=== PATIENT | male | born 1995 | race Caucasian/White ===

== ENCOUNTER 2018-12-12 12:59 | Inpatient (IN) | payer BC ==
[2018-12-12 19:12] VITALS: BMI 25.7
--- NOTE | 2018-12-12 22:54 | HP ---
COWS - Scale Resting Pulse: 0= OR 80 or Below Sweatin=Flushed/Facial Moisture Restless Observation: 5= Unable to Sit Still Pupil Size: 0= Normal to Room Light Bone or Joint Aches: 4=Acute Joint/Muscle Pain Runny Nose/ Eye Tearin= Nasal Congestion GI Upset > 30mins: 3= Vomiting/Diarrhea Tremor Observation: 4= Gross Tremor/Twitching Yawning Observation: 1= 1-2x During Session Anxiety or Irritability: 2=Irritable/Anxious Goose Flesh Skin: 0=Smooth Skin COWS Score: 22 CIWA Score Nausea/Vomitin-Mild Nausea/No Vomiting Muscle Tremors: 4-Moderate,w/Arms Extend Anxiety: 4-Mod. Anxious/Guarded Agitation: 4-Moderately Restless Paroxysmal Sweats: 3 Orientation: 0-Oriented Tacttile Disturbances: 2-Mild Itch/Numbness/Burn Auditory Disturbances: 0-None Visual Disturbances: 0-None Headache: 3-Moderate CIWA-Ar Total Score: 21 - Admission Criteria [facility] Guidelines: Admission for Medically Managed Detox: Requires at least one of the followin. CIWA greater than 12 2. Seizures within the past 24 hours 3. Delirium tremens within the past 24 hours 4. Hallucinations within the past 24 hours 5. Acute intervention needed for co occurring medical disorder 6. Acute intervention needed for co occurring psychiatric disorder 7. Severe withdrawal that cannot be handled at a lower level of care (continued vomiting, continued diarrhea, abnormal vital signs) requiring intravenous medication and/or fluids 8. Admission [facility] Chief Complaint: c/o withdrawal sx's Allergies/Adverse Reactions: Allergies Allergy/AdvReac Type Severity Reaction Status Date / Time buprenorphine [From Suboxone] Allergy Verified 12/12/18 18:52 naloxone [From Suboxone] Allergy Verified 12/12/18 18:52 History of Present Illness: 23 Y.O. MALE WITH OPIOID AND BENZO DEPENDENCE HERE FOR DETOX. CLIENT STATES HE IS COURT MANDATED. THIS IS HIS FIRST ADMISSION HERE. PRESENTS WITH C/O WITHDRAWAL SX'S. HE REPORTS DAILY USE OF HEROIN-IVDU, AND SNIFFING. LAST USE THIS MORNING. HE STATES HE IS RX XANAX 2 MG TID. LAST USE A FEW HOURS AGO TO HELP WITH WITHDRAWAL SX'S. HE TOOK "A PIECE OF A STICK" REPORTED HX/O DRUG WITHDRAWAL SZ, BLACKOUTS. MOST RECENT CLEAN TIME 2 MONTHS RELAPSING 6 MONTHS AGO. LIVES WITH , EMPLOYED, OPEN LEGAL CASE. REPORTS HX/O BRAIN INJURY, SCHIZOPHRENIA, ADD, ADHD, BIPOLAR, PTSD Exam Limitations: No Limitations - Ebola screening Have you traveled outside of the country in the last 21 days: No Have you had contact with anyone from an Ebola affected area: No Have you been sick,other than usual withdrawal symptoms: No Do you have a fever: No - Review of Systems Constitutional: Chills, Loss of Appetite, Malaise, Night Sweats, Changes in sleep EENT: reports: No Symptoms Reported Respiratory: reports: No Symptoms reported Cardiac: reports: No Symptoms Reported GI: reports: Poor Appetite, Vomiting, Abdominal cramping : reports: Other (HESITANCY) Musculoskeletal: reports: Back Pain, Joint Pain, Muscle Pain, Joint Stiffness Integumentary: reports: No Symptoms Reported Neuro: reports: Headache (MIGRAINES), Seizure, Tremors, Unsteady Gait Endocrine: reports: No Symptoms Reported Hematology: reports: No Symptoms Reported Psychiatric: reports: Orientated x3, Anxious, Depressed Other Systems: Reviewed and Negative Patient History - Patient Medical History Hx Anemia: No Hx Asthma: No Hx Chronic Obstructive Pulmonary Disease (COPD): No Hx Cancer: No Hx Cardiac Disorders: No Hx Congestive Heart Failure: No Hx Hypertension: No Hx Hypercholesterolemia: No Hx Pacemaker: No HX Cerebrovascular Accident: No Hx Seizures: Yes Hx Dementia: No Hx Diabetes: No Hx Gastrointestinal Disorders: No Hx Liver Disease: No Hx Genitourinary Disorders: No Hx Sexually Transmitted Disorders: No Hx Renal Disease (ESRD): No Hx Thyroid Disease: No Hx Human Immunodeficiency Virus (HIV): No Hx Hepatitis C: No Hx Depression: Yes Hx Suicide Attempt: Yes (PRESENTLY DENIES) Hx Bipolar Disorder: Yes Hx Schizophrenia: Yes - Patient Surgical History Past Surgical History: No - PPD History Previous Implant?: Yes Documented Results: Negative w/o proof Implanted On Prior [facility] Admission?: No PPD to be Administered?: Yes - Smoking Cessation Smoking history: Current every day smoker Have you smoked in the past 12 months: Yes Aproximately how many cigarettes per day: 20 Cigars Per Day: 0 Hx Chewing Tobacco Use: No Initiated information on smoking cessation: Yes 'Breaking Loose' booklet given: 12/12/18 - Substance & Tx. History Hx Alcohol Use: No Hx Substance Use: Yes Substance Use Type: Cocaine, Heroin, Marijuana, Opiates, Tranquilizers (XANAX) - Substances abused Heroin Substance route: Injection Frequency: Daily Amount used: 20BAGS Age of first use: 19 Date of last use: 12/12/18 Other Other (specify): FENTANYL Substance route: Oral Frequency: Daily Amount used: 0.5GRAMS Age of first use: 22 Date of last use: 12/12/18 Family Disease History - Family Disease History Family Disease History: Diabetes: Mother, Heart Disease: Father Admission Physical Exam [facility] - Vital Signs Vital Signs: Vital Signs - 24 hr 12/12/18 19:09 Temperature 96.6 F L Pulse Rate 60 Respiratory 18 Rate Blood Pressure 109/67 - Physical General Appearance: Yes: Moderate Distress, Tremorous, Irritable, Anxious HEENTM: Yes: EOMI, Normocephalic, Normal Voice, TERESA, Pharynx Normal, Other ( POOR DENTTION) Respiratory: Yes: Chest Non-Tender, Lungs Clear, Normal Breath Sounds, No Respiratory Distress, No Accessory Muscle Use Neck: Yes: No masses,lesions,Nodules, Supple, Trachea in good position Breast: Yes: Breast Exam Deferred Cardiology: Yes: Regular Rhythm, Regular Rate, S1, S2 Abdominal: Yes: Normal Bowel Sounds, Non Tender, Soft Genitourinary: Yes: Within Normal Limits Back: Yes: Normal Inspection Musculoskeletal: Yes: full range of Motion, Gait Steady, Joint Stiffness (2/2 ACHES) Extremities: Yes: Normal Capillary Refill, Normal Range of Motion, Non-Tender, Tremors Neurological: Yes: Fully Oriented, Alert, Motor Strength 5/5, Depressed Affect Integumentary: Yes: Cold Lymphatic: Yes: Within Normal Limits - Diagnostic (1) Opioid dependence with withdrawal Current Visit: Yes Status: Acute (2) Sedative, hypnotic or anxiolytic dependence, uncomplicated Current Visit: Yes Status: Acute (3) Nicotine dependence Current Visit: Yes Status: Acute (4) IVDU (intravenous drug user) Current Visit: Yes Status: Acute (5) Cannabis dependence, uncomplicated Current Visit: Yes Status: Acute (6) Cannabis abuse, uncomplicated Current Visit: Yes Status: Acute (7) Cocaine abuse, uncomplicated Current Visit: Yes Status: Acute Cleared for Admission [facility] - Detox or Rehab [facility] Level of Care: Medically Managed Detox Regimen/Protocol: Methadone/Valium Claeared for Rehab Admission: No Breathalyzer - Breathalyzer Breathalyzer: 0 Urine Drug Screen - Test Device Lot number: [id number] Expiration date: 08/25/20 - Control Is test valid?: Yes - Results Drug screen NEGATIVE: No Urine drug screen results: THC-Marijuana, JAIRO-Cocaine, FEN-Fentanyl, MOP-Opiates , OXY-Oxycodone, MTD-Methadone, BZO-Benzodiazepines Inpatient Rehab Admission - Rehab Decision to Admit Inpatient rehab admission?: No
[2018-12-12] MEDS ORDERED: IBUPROFEN 400 MG TABLET (FP) PO PRN (23:00)
[2018-12-12] MEDS ORDERED: hydrOXYzine PAMOATE 25 MG CAPSULE (FP) PO PRN (23:00)
[2018-12-12] MEDS ORDERED: MAGNESIUM CITRATE 300 ML BOTTLE PO PRN (23:00)
[2018-12-12] MEDS ORDERED: MAG HYDROX/AL HYDROX/SIMETH 30 ML UNIT-DOSE CUP PO PRN (23:00)
[2018-12-12] MEDS ORDERED: ACETAMINOPHEN 325 MG TABLET (FP) PO PRN ×2 (23:00)
[2018-12-12] MEDS ORDERED: MENTHOL/PHENOL 1 EACH UD MM PRN (23:00)
[2018-12-12] MEDS ORDERED: MAGNESIUM HYDROX 2400MG/30ML ORAL SUSPENSION 30 ML CUP PO PRN (23:00)
[2018-12-12] MEDS ORDERED: cloNIDine HCL 0.1 MG TABLET PO PRN (23:00)
[2018-12-12] MEDS ORDERED: METHOCARBAMOL 500 MG TABLET PO PRN (23:00)
[2018-12-12] MEDS ORDERED: METHADONE HCL 10 MG TABLET (FOR DETOX USE ONLY) PO ONE (23:00)
[2018-12-12] MEDS ORDERED: ONDANSETRON *ODT* 4 MG TABLET SL PRN (23:00)
[2018-12-12] MEDS ORDERED: NICOTINE POLACRILEX 2 MG GUM BUC PRN (23:00)
[2018-12-12] MEDS ORDERED: BISMUTH SUBSALICYLATE 524 MG/30 ML UD PO PRN (23:00)
[2018-12-12] MEDS ORDERED: MELATONIN 5 MG TABLETS PO PRN (23:00)
[2018-12-13] MEDS: diazePAM 5 MG TABLET PO SCH ×4 (00:01→22:26)
[2018-12-13] MEDS ORDERED: METHADONE HCL 5 MG TABLET (FOR DETOX USE ONLY) ONE (09:31)
[2018-12-13] MEDS ORDERED: METHADONE HCL 10 MG TABLET (FOR DETOX USE ONLY) ONE (09:31)
[2018-12-13 09:48] LABS: HEMATOCRIT 40.5 % (35.4-49); HEMOGLOBIN 13.4 GM/dL (11.7-16.9); MCH 29.5 pg (25.7-33.7); MCHC 33.1 g/dl (32.0-35.9); MEAN CELL VOLUME 88.9 fl (80-96); PLATELET COUNT 221 K/MM3 (134-434); RBC 4.56 M/mm3 (4.00-5.60); RDW 13.1 % (11.9-15.9); WHITE BLOOD COUNT 8.1 K/mm3 (4.0-10.0)
[2018-12-13] MEDS ORDERED: METHADONE (DETOX) 20 MG, METHADONE (DETOX) 5 MG PO ONE (10:00)
[2018-12-13 10:09] LABS: ALBUMIN 3.8 g/dl (3.4-5.0); BILIRUBIN,TOTAL 0.4 mg/dL (0.2-1); BLOOD UREA NITROGEN 10.3 mg/dL (7-18); CALCIUM 8.7 mg/dL (8.5-10.1); CREATININE 0.7 mg/dL (0.55-1.3); POTASSIUM 3.8 mmol/L (3.5-5.1); TOT PROT 6.4 g/dl (6.4-8.2)
--- NOTE | 2018-12-13 10:32 | CONSULT ---
[facility] Psychiatric Consult - Data Date of interview: 12/13/18 (Court mandate) Admission source: Court mandate Identifying data: MR Pederson is a 23 years old male, father of a 4 years old daughter, unemployed receiving SSI, domiciled seeking detox treatment for opioid Substance Abuse History: Reports history of heroin and fentanyl use. Refer to addiction counselor's summary for further information Medical History: Significant of seizure disorder and history of brain injury. Smokes cigarettes 1 ppd Psychiatric History: Reports that his first psychiatric contact was at age 6 when he was diagnosed with ADHD and started on stimulants. Reports Schizophrenia /Bipolar was added to his diagnoses at age 11-12 and PTSD at age 19. Reports that he currently sees Dr Marcela Valente in [place], [place] and he is prescribed Xanax 2 mg/tid, Adderall 20 mg/tid and Seroquel 200 mg/bid. External medication history shows scripts for 30 days supply of these medications filled on 10/20/18 at [facility]. Reports 4-5 previous psychiatric hospitalizations at [facility], [facility] and a hospital in [place] in [place]. At present, denies experiencing psychotic, manic or depressive symptoms, S/H ideations. However, he is very angry, hostile during the interview and reports sleeping poorly. He insists of being ordered Seroquel as prescribed Physical/Sexual Abuse/Trauma History: Reports serving in the [employer] from age 17 to 19. Mental Status Exam - Mental Status Exam Alert and Oriented to: Time, Person Cognitive Function: Fair Patient Appearance: Disheveled Mood: Angry, Hostile Patient Behavior: Uncooperative Speech Pattern: Clear Voice Loudness: Normal Thought Process: Intact, Goal Oriented Thought Disorder: Not Present Hallucinations: Denies Suicidal Ideation: Denies Homicidal Ideation: Denies Insight/Judgement: Poor Sleep: Poorly Appetite: Good Muscle strength/Tone: Normal Gait/Station: Normal Psychiatric Findings - Problem List (Allen 1, 2,3) (1) ADHD (attention deficit hyperactivity disorder) Current Visit: Yes Status: Chronic (2) PTSD (post-traumatic stress disorder) Current Visit: Yes Status: Chronic (3) Schizoaffective disorder Current Visit: Yes Status: Chronic (4) Substance induced mood disorder Current Visit: Yes Status: Acute (5) Substance-induced sleep disorder Current Visit: Yes Status: Acute (6) Opioid dependence with withdrawal Current Visit: Yes Status: Acute (7) Sedative, hypnotic or anxiolytic dependence, uncomplicated Current Visit: Yes Status: Acute (8) Brain injury Current Visit: Yes Status: Chronic - Initial Treatment Plan Initial Treatment Plan: 1) Resume Seroquel 200 mg po BID. 2) Continue inpatient detoxification
[2018-12-13] MEDS ORDERED: hydrOXYzine PAMOATE 50 MG CAPSULE (FP) PO PRN (10:42)
[2018-12-13] MEDS: NICOTINE 21 MG/24 HOURS TOPICAL PATCH TD SCH (10:50)
[2018-12-13] MEDS: PRENATAL VITAMINS W/ FOLIC ACID TABLET (FP) PO SCH (10:50)
[2018-12-13] MEDS: diazePAM 5 MG TABLET PO PRN ×4 (10:54→20:36)
--- NOTE | 2018-12-13 11:29 | EKG ---
Test Reason : Blood Pressure : / mmHG Vent. Rate : 051 BPM Atrial Rate : 051 BPM P-R Int : 150 ms QRS Dur : 094 ms QT Int : 414 ms P-R-T Axes : 061 046 030 degrees QTc Int : 381 ms SINUS BRADYCARDIA WITH MARKED SINUS ARRHYTHMIA OTHERWISE NORMAL ECG NO PREVIOUS ECGS AVAILABLE Confirmed by LIO HAINES, RAJAT ([id number]) on 12/13/2018 11:29:28 AM Referred By: EL Confirmed By:RAJAT VACA MD
--- NOTE | 2018-12-13 11:32 | PN ---
S CIWA - CIWA Score Nausea/Vomitin Muscle Tremors: 2 Anxiety: 2 Agitation: 2 Paroxysmal Sweats: 1-Minimal Palms Moist Orientation: 0-Oriented Tacttile Disturbances: 1-Very Mild Itch/Numbness Auditory Disturbances: 0-None Visual Disturbances: 0-None Headache: 2-Mild CIWA-Ar Total Score: 12 BHS COWS - Scale Resting Pulse: 0= CA 80 or Below Sweatin= Chills/Flushing Restless Observation: 1= Difficult to Sit Still Pupil Size: 1= Pupils >than Normal Bone or Joint Aches: 1= Mild Discomfort Runny Nose/ Eye Tearin= Nasal Congestion GI Upset > 30mins: 2= Nausea/Diarrhea Tremor Observation of Outstretched Hands: 1= Tremor Vickery, Not Seen Yawning Observation: 1= 1-2x During Session Anxiety or Irritability: 2=Irritable/Anxious Goose Flesh Skin: 0=Smooth Skin COWS Score: 11 S Progress Note (SOAP) Subjective: alert,irritable,anxious,interrupted sleep,pain in the body and back Objective: 12/13/18 11:30 Vital Signs Temperature 97.3 F L 12/13/18 09:07 Pulse Rate 63 12/13/18 09:07 Respiratory Rate 18 12/13/18 09:07 Blood Pressure 109/52 L 12/13/18 09:07 O2 Sat by Pulse Oximetry (%) Laboratory Last Values WBC 8.1 K/mm3 (4.0-10.0) 12/13/18 08:20 RBC 4.56 M/mm3 (4.00-5.60) 12/13/18 08:20 Hgb 13.4 GM/dL (11.7-16.9) 12/13/18 08:20 Hct 40.5 % (35.4-49) 12/13/18 08:20 MCV 88.9 fl (80-96) 12/13/18 08:20 MCH 29.5 pg (25.7-33.7) 12/13/18 08:20 MCHC 33.1 g/dl (32.0-35.9) 12/13/18 08:20 RDW 13.1 % (11.9-15.9) 12/13/18 08:20 Plt Count 221 K/MM3 (134-434) 12/13/18 08:20 MPV 8.0 fl (7.5-11.1) 12/13/18 08:20 Sodium 137 mmol/L (136-145) 12/13/18 08:20 Potassium 3.8 mmol/L (3.5-5.1) 12/13/18 08:20 Chloride 101 mmol/L (98-107) 12/13/18 08:20 Carbon Dioxide 31 mmol/L (21-32) 12/13/18 08:20 Anion Gap 5 MMOL/L (8-16) L 12/13/18 08:20 BUN 10.3 mg/dL (7-18) 12/13/18 08:20 Creatinine 0.7 mg/dL (0.55-1.3) 12/13/18 08:20 Est GFR (CKD-EPI)AfAm 153.09 12/13/18 08:20 Est GFR (CKD-EPI)NonAf 132.09 12/13/18 08:20 Random Glucose 89 mg/dL (74-106) 12/13/18 08:20 Calcium 8.7 mg/dL (8.5-10.1) 12/13/18 08:20 Total Bilirubin 0.4 mg/dL (0.2-1) 12/13/18 08:20 AST 17 U/L (15-37) 12/13/18 08:20 ALT 15 U/L (13-61) 12/13/18 08:20 Alkaline Phosphatase 57 U/L (45-117) 12/13/18 08:20 Total Protein 6.4 g/dl (6.4-8.2) 12/13/18 08:20 Albumin 3.8 g/dl (3.4-5.0) 12/13/18 08:20 Assessment: 12/13/18 11:31 withdrawal symptom Plan: continue detox methadone and valium regimen,encourage oral fluid
[2018-12-13] MEDS: QUEtiapine FUMARATE 200 MG TABLET PO SCH ×2 (13:57→22:27)
[2018-12-13] MEDS ORDERED: THIAMINE HCL 100 MG TABLET (FP) PO SCH (22:00)
[2018-12-14] MEDS: diazePAM 5 MG TABLET PO PRN ×2 (02:25→08:59)
[2018-12-14] MEDS ORDERED: diazePAM 5 MG TABLET PO SCH (06:00)
[2018-12-14 06:01] VITALS: BP 95/59; PULSE 66; TEMP 97
[2018-12-14] MEDS ORDERED: METHADONE HCL 10 MG TABLET (FOR DETOX USE ONLY) PO ONE (10:00)
[2018-12-14] MEDS: NICOTINE 21 MG/24 HOURS TOPICAL PATCH TD SCH (10:55)
[2018-12-14] MEDS: PRENATAL VITAMINS W/ FOLIC ACID TABLET (FP) PO SCH (10:55)
--- NOTE | 2018-12-14 12:16 | PN ---
[facility] Progress Note Note: pt was at the nurses window during medication and when asked by the RN Kim to please get his vitals prior to medication, pt became enraged, yelling, screaming at the nurse that he will "fuck her up if he doesn't get his meds!" pt was approached by comic book writer and states please let me take your vital and come back to the window for medication. pt started to pace up and down the [place] making a fist to fight and states let anyone come at me and I'm going to fuck somebody up. pt then approached the medication window and started to bang on the glass and broke the glass. pt did experience a cut to his right hand knuckle area. There was no re-directing patient pt was unapproachable and security alarm was initiated. All disciplines involved (clinical clinic supervisor Oksana , director Sharda, nursing clinic supervisor Keisha were present and a decision was determined to have pt escorted off the unit and an involuntary discharge was made. security was able to engage with patient and have him isolated in one of the counselors office but pt continue to scream and became more aggressive and threatening and 911 was called. pt was escorted off the unit in handcuff by [employer] police.
--- NOTE | 2018-12-14 12:41 | DS ---
[facility] Detox Discharge Summary Admission Date: 12/12/18 - History Present History: Cannabis Dependence, Cocaine Dependence, Opioid Dependence, Sedative Dependence - Physical Exam Results Vital Signs: Vital Signs Temperature 97.0 F L 12/14/18 06:00 Pulse Rate 66 12/14/18 06:00 Respiratory Rate 18 12/14/18 06:00 Blood Pressure 95/59 L 12/14/18 06:00 O2 Sat by Pulse Oximetry (%) Pertinent Admission Physical Exam Findings: Laboratory Tests 12/13/18 12/13/18 12/13/18 08:20 08:20 08:20 WBC 8.1 RBC 4.56 Hgb 13.4 Hct 40.5 MCV 88.9 MCH 29.5 MCHC 33.1 RDW 13.1 Plt Count 221 MPV 8.0 Sodium 137 Potassium 3.8 Chloride 101 Carbon Dioxide 31 Anion Gap 5 L BUN 10.3 Creatinine 0.7 Est GFR (CKD-EPI)AfAm 153.09 Est GFR (CKD-EPI)NonAf 132.09 Random Glucose 89 Calcium 8.7 Total Bilirubin 0.4 AST 17 ALT 15 Alkaline Phosphatase 57 Total Protein 6.4 Albumin 3.8 RPR Titer Nonreactive pt escorted off the unit by [employer] - Treatment Patient has Accepted a Rehab Referral to: referral provided - Medication Discharge Medications: Ambulatory Orders Dextroamphetamine/Amphetamine [Adderall Xr 20 mg Capsule] 20 mg PO TID 12/12/18 Quetiapine Fumarate [Seroquel -] 200 mg PO HS 12/12/18 - Diagnosis (1) Cannabis abuse, uncomplicated Current Visit: Yes Status: Chronic (2) Cocaine abuse, uncomplicated Current Visit: Yes Status: Acute (3) IVDU (intravenous drug user) Current Visit: Yes Status: Chronic (4) Nicotine dependence Current Visit: Yes Status: Chronic Qualifiers: Nicotine product type: cigarettes Substance use status: uncomplicated Qualified Code(s): F17.210 - Nicotine dependence, cigarettes, uncomplicated (5) Opioid dependence with withdrawal Current Visit: Yes Status: Chronic (6) Sedative, hypnotic or anxiolytic dependence, uncomplicated Current Visit: Yes Status: Chronic (7) Substance induced mood disorder Current Visit: Yes Status: Acute (8) Substance-induced sleep disorder Current Visit: Yes Status: Acute (9) ADHD (attention deficit hyperactivity disorder) Current Visit: Yes Status: Chronic (10) PTSD (post-traumatic stress disorder) Current Visit: Yes Status: Chronic (11) Schizoaffective disorder Current Visit: Yes Status: Chronic - AMA Did Patient Leave Against Medical Advice: No (Involuntary discharge)
[2018-12-14] MEDS: QUEtiapine FUMARATE 200 MG TABLET PO SCH (14:44)
[2018-12-15] MEDS ORDERED: diazePAM 5 MG TABLET PO ONE (06:00)
[2018-12-15] MEDS ORDERED: METHADONE (DETOX) 10 MG, METHADONE (DETOX) 5 MG PO ONE (10:00)
[2018-12-16] MEDS ORDERED: METHADONE HCL 10 MG TABLET (FOR DETOX USE ONLY) PO ONE (10:00)
[2018-12-17] MEDS ORDERED: METHADONE HCL 5 MG TABLET (FOR DETOX USE ONLY) PO ONE (06:00)
== END 2018-12-14 10:55 | DRG 773 ==
LOC: YASAS 12:59 → Y6N 23:08
PROVIDERS: ADMIT Surgery; ATTEND Surgery
PROC: HZ2ZZZZ Detoxification Services for Substance Abuse Treatment (ICD-10-PCS; principal; 2018-12-12)
DX: F11.23 Opioid dependence with withdrawal (principal); F13.230 Sedative, hypnotic or anxiolytic dependence with withdrawal, uncomplicated; F14.10 Cocaine abuse, uncomplicated; F12.10 Cannabis abuse, uncomplicated; F17.210 Nicotine dependence, cigarettes, uncomplicated; F19.24 Other psychoactive substance dependence with psychoactive substance-induced mood disorder; F19.282 Other psychoactive substance dependence with psychoactive substance-induced sleep disorder; F90.9 Attention-deficit hyperactivity disorder, unspecified type; F43.10 Post-traumatic stress disorder, unspecified; F25.9 Schizoaffective disorder, unspecified; F91.8 Other conduct disorders; G40.909 Epilepsy, unspecified, not intractable, without status epilepticus
CPT/HCPCS: 36415; 80053; 85027; 86593; 93005; 93010; J0735

== ENCOUNTER 2019-01-09 17:21 | Inpatient (IN) | payer OTHER ==
[2019-01-09 18:23] VITALS: BMI 25.1
--- NOTE | 2019-01-09 21:55 | HP ---
"COWS - Scale Resting Pulse: 1= ND 81-100 Sweatin=Flushed/Facial Moisture Restless Observation: 3= Extraneous Movement Pupil Size: 2= Moderately Dilated (Pupils = 4 mm) Bone or Joint Aches: 1= Mild Discomfort Runny Nose/ Eye Tearin= Nasal Congestion GI Upset > 30mins: 3= Vomiting/Diarrhea Tremor Observation: 4= Gross Tremor/Twitching Yawning Observation: 0= None Anxiety or Irritability: 4=Extreme Anxiety Goose Flesh Skin: 0=Smooth Skin COWS Score: 21 CIWA Score - Admission Criteria OASAS Guidelines: Admission for Medically Managed Detox: Requires at least one of the followin. CIWA greater than 12 2. Seizures within the past 24 hours 3. Delirium tremens within the past 24 hours 4. Hallucinations within the past 24 hours 5. Acute intervention needed for co occurring medical disorder 6. Acute intervention needed for co occurring psychiatric disorder 7. Severe withdrawal that cannot be handled at a lower level of care (continued vomiting, continued diarrhea, abnormal vital signs) requiring intravenous medication and/or fluids 8. Admitting History and Physical - Smoking History Smoking history: Current every day smoker Have you smoked in the past 12 months: Yes Aproximately how many cigarettes per day: 20 - Alcohol/Substance Use Hx Alcohol Use: No Admission ROS S - HPI Chief Complaint: Having heroin withdrawal Allergies/Adverse Reactions: Allergies Allergy/AdvReac Type Severity Reaction Status Date / Time buprenorphine [From Suboxone] Allergy Verified 12/12/18 18:52 naloxone [From Suboxone] Allergy Verified 12/12/18 18:52 History of Present Illness: 23 yo states detoxed @ [place] 1 month ago detoxed and discharged 12/21. Relapsed on 01/04/19 and started using Heroin, marijuana, Was at [facility] ED for awaiting detox and was medicated x 2 days w/ methadone and left there at 5 am today. Heroin use began at age 20. States has been using 10-15 bags/day. Usually nasal , occ IV. States never shares needles and works. Is considering a MMTP in future. Marijuana use began at age 8. Smokes 2 blunts QOD. Nicotine use began at age 8. Currently smoking 1.5 PPD. Denies alcohol use. Hx seizure- last 1 week ago and states r/t missed Xanax x 2 days. Hx: Multiple heroin overdoses. Last 3.5 months ago. [facility] was given Narcan. [facility] has Narcan kit at home. Patient refuses a PPD. Will order QFT. PMHx: Chronic back pain. MHHx: On prescribed alprazolam for panic attacks. On Adderral for ADHD. Intermittent depression. Denies thoughts of harming self or others. Insomnia. [facility] increased Seroquel to 400 mg. SHx: Domiciled. Unemployed. Legal issues - but not mandated in tx. Patient Name: Azael Pederson Date: 1995 Address: [address] [place] [id number] Sex: Male Rx Written Rx Dispensed Drug Quantity Days Supply Prescriber Name 12/21/2018 12/21/2018 alprazolam 2 mg tablet 90 30 Marcela Valente [employer] 12/21/2018 12/21/2018 dextroamp-amphetamin 20 mg tab 90 30 Marcela Valente [employer] 11/23/2018 11/23/2018 alprazolam 2 mg tablet 90 30 Marcela Valente [employer] 11/23/2018 11/23/2018 dextroamp-amphetamin 20 mg tab 90 30 Marcela Valente [employer]ER Patient Name: Azael Pederson Date: 1995 Address: [address] [place] [id number] Sex: Male Rx Written Rx Dispensed Drug Quantity Days Supply Prescriber Name 10/13/2018 10/20/2018 alprazolam 2 mg tablet 90 30 Marcela Valente NP 10/13/2018 10/20/2018 dextroamp-amphetamin 20 mg tab 90 30 Marcela Valente NP 08/22/2018 09/21/2018 alprazolam 2 mg tablet 90 30 Marcela Valente NP 09/18/2018 09/21/2018 dextroamp-amphetamin 20 mg tab 90 30 Marcela Valente NP 08/10/2018 08/22/2018 alprazolam 2 mg tablet 90 30 Marcela Valente [employer] 08/22/2018 08/22/2018 dextroamp-amphetamin 20 mg tab 90 30 Marcela Valente NP 07/13/2018 07/20/2018 alprazolam 2 mg tablet 90 30 Marcela Valente NP 07/13/2018 07/18/2018 dextroamp-amphetamin 20 mg tab 90 30 Marcela Valente [employer] 06/20/2018 06/20/2018 alprazolam 2 mg tablet 90 30 Marcela Valente [employer]ER 06/20/2018 06/20/2018 dextroamp-amphetamin 20 mg tab 50 25 Marcela Valente [employer] OFF[employer]ER 05/23/2018 05/23/2018 alprazolam 2 mg tablet 90 30 Marcela Valente [employer]ER 05/23/2018 05/23/2018 dextroamp-amphetamin 20 mg tab 60 30 Marcela Valente [employer] 03/16/2018 03/16/2018 clonazepam 1 mg tablet 42 14 RockyRao flahertyaly Wolfe [employer]ER 03/16/2018 03/16/2018 dextroamp-amphetamin 20 mg tab 28 14 Rocky Mamadou Wolfe [employer] 03/12/2018 03/15/2018 acetaminophen-cod #3 tablet 12 3 Butch Rahman DMD 03/04/2018 03/04/2018 oxycodone-acetaminophen 5-325 mg tablet 8 2 Noemí Lehman J 02/17/2018 02/24/2018 dextroamp-amphetamin 10 mg tab 60 30 Mamadou Hidalgo NP 02/17/2018 02/17/2018 clonazepam 0.5 mg tablet 60 30 Mamadou Hidalgo NP Search Terms: Azael Pederson, 1995 Search Date: 01/09/2019 09:54:16 PM States Searched: [place], [place], [place], [place], [place], [place], [place] The Drug Utilization Report below displays the controlled substance prescriptions, if any, that were dispensed in the indicated state(s). The information displayed on this report is compiled from requests submitted to other states' PMPs, and accurately reflects the information as returned by them. Blank shine indicate data not provided by other state. This report was requested by: Serene Grullon | Reference #: [id number] There are no results for the search terms that you entered. Exam Limitations: No Limitations - Ebola screening Have you traveled outside of the country in the last 21 days: No (N) Have you had contact with anyone from an Ebola affected area: No Have you been sick,other than usual withdrawal symptoms: No Do you have a fever: No - Review of Systems Constitutional: Chills, Changes in sleep (Difficuty falling and staying asleep.) EENT: reports: Nose Congestion, Dental Problems (Cavities. Occ pain - and use orajel. Chews and swallows ok.) Respiratory: reports: No Symptoms reported Cardiac: reports: No Symptoms Reported GI: reports: Diarrhea (soft, watery, greenish x 2), Nausea, Vomiting, Abdominal cramping : reports: No Symptoms Reported Musculoskeletal: reports: Back Pain (Chronic back pain increased since coming off drugs), Joint Pain (since coming off drugs) Integumentary: reports: No Symptoms Reported Neuro: reports: Headache (Intermittent headaches states r/t non-comp[liance w/ meds) Endocrine: reports: No Symptoms Reported Hematology: reports: No Symptoms Reported Psychiatric: reports: Orientated x3, Agitated, Anxious Patient History - Patient Medical History Hx Anemia: No Hx Asthma: No Hx Chronic Obstructive Pulmonary Disease (COPD): No Hx Cancer: No Hx Cardiac Disorders: No Hx Congestive Heart Failure: No Hx Hypertension: No Hx Hypercholesterolemia: No Hx Pacemaker: No HX Cerebrovascular Accident: No Hx Seizures: Yes Hx Dementia: No Hx Diabetes: No Hx Gastrointestinal Disorders: No Hx Liver Disease: No Hx Genitourinary Disorders: No Hx Sexually Transmitted Disorders: No Hx Renal Disease (ESRD): No Hx Thyroid Disease: No Hx Human Immunodeficiency Virus (HIV): No Hx Hepatitis C: No Hx Depression: Yes Hx Suicide Attempt: Yes (PRESENTLY DENIES) Hx Bipolar Disorder: Yes Hx Schizophrenia: Yes - Patient Surgical History Past Surgical History: No Hx Neurologic Surgery: No Hx Cataract Extraction: No Hx Cardiac Surgery: No Hx Lung Surgery: No Hx Breast Surgery: No Hx Breast Biopsy: No Hx Abdominal Surgery: No Hx Appendectomy: No Hx Cholecystectomy: No Hx Genitourinary Surgery: No Hx Section: No Hx Orthopedic Surgery: No Other Surgical History: post head surgery s/p trauma Anesthesia Reaction: No - PPD History Previous Implant?: Yes (Refusing PPD test, will do TB Gold (QFT)) Documented Results: Negative w/o proof Implanted On Prior R Admission?: No PPD to be Administered?: No - Smoking Cessation Smoking history: Current every day smoker Have you smoked in the past 12 months: Yes Aproximately how many cigarettes per day: 30 Cigars Per Day: 0 Hx Chewing Tobacco Use: No Initiated information on smoking cessation: Yes 'Breaking Loose' booklet given: 01/09/19 - Substance & Tx. History Hx Alcohol Use: No Hx Substance Use: Yes Substance Use Type: Heroin, Marijuana, Prescribed (Xanax) Hx Substance Use Treatment: Yes (detox, ) - Substances abused Heroin Substance route: Injection Frequency: Daily Amount used: 2 to 20 BAGS Age of first use: 19 Date of last use: 01/09/19 Other Other (specify): FENTANYL Substance route: Oral Frequency: Daily Amount used: 0.5GRAMS Age of first use: 22 Date of last use: 12/12/18 Admission Physical Exam BHS - Vital Signs Vital Signs: Vital Signs - 24 hr 01/09/19 18:12 Temperature 97 F L Pulse Rate 101 H Respiratory 18 Rate Blood Pressure 126/77 - Physical General Appearance: Yes: Nourished, Moderate Distress, Tremorous, Irritable, Sweating (Increased facial moisture), Anxious HEENTM: Yes: EOMI, Hearing grossly Normal, Normocephalic, Normal Voice, TERESA ( Pupils = 4 mm), Nasal Congestion Respiratory: Yes: Lungs Clear (Pulse Ox = 98 %), Normal Breath Sounds, No Respiratory Distress Neck: Yes: No masses,lesions,Nodules, Supple Breast: Yes: Breast Exam Deferred Cardiology: Yes: Regular Rhythm, Regular Rate, S1, S2 Abdominal: Yes: Non Tender, Flat, Soft, Increased Bowel Sounds Genitourinary: Yes: Within Normal Limits Back: Yes: Normal Inspection Musculoskeletal: Yes: full range of Motion, Gait Steady Extremities: Yes: Normal Capillary Refill (Peripheral pulses +), Tremors (Gross tremors) Neurological: Yes: 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 NML intact, Fully Oriented, Alert, Motor Strength 5/5 Integumentary: Yes: Normal Color, Warm, Diaphoresis (Increased facial moisture) , Track Platt (Few track platt on arms) Lymphatic: Yes: Within Normal Limits - Diagnostic (1) Cannabis abuse, uncomplicated Current Visit: Yes Status: Chronic (2) IVDU (intravenous drug user) Current Visit: Yes Status: Chronic (3) Nicotine dependence Current Visit: Yes Status: Chronic Qualifiers: Nicotine product type: cigarettes Substance use status: uncomplicated Qualified Code(s): F17.210 - Nicotine dependence, cigarettes, uncomplicated (4) Opioid dependence with withdrawal Current Visit: Yes Status: Acute (5) Sedative, hypnotic or anxiolytic dependence, uncomplicated Current Visit: Yes Status: Chronic Comment: Prescribed (6) Insomnia, unspecified Current Visit: Yes Status: Chronic Qualifiers: Insomnia type: unspecified Qualified Code(s): G47.00 - Insomnia, unspecified Cleared for Admission BHS - Detox or Rehab [facility] Level of Care: Medically Managed Detox Regimen/Protocol: Methadone Claeared for Rehab Admission: No Breathalyzer - Breathalyzer Breathalyzer: 0 Urine Drug Screen - Test Device Lot number: [id number] Expiration date: 08/25/20 - Control Is test valid?: Yes - Results Drug screen NEGATIVE: Yes Urine drug screen results: THC-Marijuana, FEN-Fentanyl, MOP-Opiates, OXY- Oxycodone, MTD-Methadone, BZO-Benzodiazepines Inpatient Rehab Admission - Rehab Decision to Admit Inpatient rehab admission?: No"
[2019-01-09] MEDS ORDERED: BISMUTH SUBSALICYLATE 524 MG/30 ML UD PO PRN (22:45)
[2019-01-09] MEDS ORDERED: MAGNESIUM CITRATE 300 ML BOTTLE PO PRN (22:45)
[2019-01-09] MEDS ORDERED: NICOTINE POLACRILEX 4 MG GUM BUC PRN (22:45)
[2019-01-09] MEDS ORDERED: ACETAMINOPHEN 325 MG TABLET (FP) PO PRN ×2 (22:45)
[2019-01-09] MEDS ORDERED: cloNIDine HCL 0.1 MG TABLET PO PRN (22:45)
[2019-01-09] MEDS ORDERED: MAGNESIUM HYDROX 2400MG/30ML ORAL SUSPENSION 30 ML CUP PO PRN (22:45)
[2019-01-09] MEDS ORDERED: MENTHOL/PHENOL 1 EACH UD MM PRN (22:45)
[2019-01-09] MEDS ORDERED: IBUPROFEN 400 MG TABLET (FP) PO PRN (22:45)
[2019-01-09] MEDS ORDERED: METHOCARBAMOL 500 MG TABLET PO PRN (22:45)
[2019-01-09] MEDS ORDERED: MAG HYDROX/AL HYDROX/SIMETH 30 ML UNIT-DOSE CUP PO PRN (22:45)
[2019-01-09] MEDS ORDERED: MELATONIN 5 MG TABLETS PO PRN (22:45)
[2019-01-09] MEDS ORDERED: METHADONE HCL 10 MG TABLET (FOR DETOX USE ONLY) PO ONE (23:20)
[2019-01-09] MEDS ORDERED: QUEtiapine FUMARATE 100 MG TABLET (FP) PO ONE (23:20)
[2019-01-10] MEDS: clonazePAM 0.5 MG TABLET PO PRN ×2 (00:36→09:07)
[2019-01-10] MEDS ORDERED: METHADONE HCL 5 MG TABLET (FOR DETOX USE ONLY) ONE (09:11)
[2019-01-10] MEDS ORDERED: METHADONE HCL 10 MG TABLET (FOR DETOX USE ONLY) ONE (09:12)
--- NOTE | 2019-01-10 09:39 | PN ---
BHS COWS - Scale Resting Pulse: 1= MA 81-100 Sweatin= Chills/Flushing Restless Observation: 1= Difficult to Sit Still Pupil Size: 1= Pupils >than Normal Bone or Joint Aches: 2= Severe Diffuse Aches Runny Nose/ Eye Tearin= Runny Nose/Eyes GI Upset > 30mins: 3= Vomiting/Diarrhea Tremor Observation of Outstretched Hands: 1= Tremor [place], Not Seen Yawning Observation: 1= 1-2x During Session Anxiety or Irritability: 4=Extreme Anxiety Goose Flesh Skin: 0=Smooth Skin COWS Score: 17 BHS Progress Note (SOAP) Subjective: c/o anxiety, body aches, chills interrupted sleep, abdominal cramps vomiting Objective: 01/10/19 09:38 Vital Signs Temperature 97 F L 01/09/19 18:12 Pulse Rate 87 01/10/19 00:15 Respiratory Rate 18 01/10/19 00:15 Blood Pressure 114/66 01/10/19 00:15 O2 Sat by Pulse Oximetry (%) labs pending Assessment: 01/10/19 14:04 Aox3 no acute distress, anxious, medication seeking pacing on the unit EENT WNL Full ROM withdrawal sx Plan: Patient reports prn klonopin is not helping with his anxiety sx, reports in the community takes xanax daily, prn protocol changed to Valium x 2 days. Patient is medication seeking and is constantly asking for higher doses of currently medications. Protocol reviewed with patient made aware of medication he will receive during his detox and advised patients symptoms will be evaluated / assessed and treated accordingly. Patient verbalizes understanding. Patient encourage to follow up with primary medication provider, educated on MAT benefits and risk continue detox continue to monitor
[2019-01-10] MEDS ORDERED: ONDANSETRON *ODT* 4 MG TABLET SL PRN (09:41)
--- NOTE | 2019-01-10 09:44 | CONSULT ---
[facility] Psychiatric Consult - Data Date of interview: 01/10/19 Admission source: Self-referred Identifying data: Mr Pederson is a 23 years old male, father of a 4 years old daughter, unemployed receiving SSI, domiciled seeking detox treatment for opioid Substance Abuse History: Reports history of heroin, fentanyl and marijuana use. Refer to addiction counselor's summary for further information Medical History: Significant for chronic back pain, seizure disorder, history of brain injury. 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 Historical narrative remains consistent. Reports that his first psychiatric contact was at age 6 when he was diagnosed with ADHD and started on stimulants. Reports Schizophrenia /Bipolar was added to his diagnoses at age 11-12 and PTSD at age 19. Reports that he currently sees Dr Marcela Valente in [place], [place] and he is prescribed Xanax 2 mg/tid, Adderall 20 mg/tid and Seroquel 200 mg/bid. This is confirmed by calling [facility] at [address] [place], [place] [address] in [place], [place] where scripts were filled on12/21/18. Reports 4-5 previous psychiatric hospitalizations at [facility], [facility] and a hospital in [place] in [place]. At present, denies experiencing psychotic, manic or depressive symptoms, S/H ideations. However, he is very argumentative during the interview, reports feeling anxious and sleeping poorly. Physical/Sexual Abuse/Trauma History: Reports serving in the [employer] from age 17 to 19. Mental Status Exam - Mental Status Exam Alert and Oriented to: Time, Place, Person Cognitive Function: Fair Patient Appearance: Well Groomed Mood: Anxious, Irritable Affect: Appropriate Patient Behavior: Cooperative Speech Pattern: Clear Thought Process: Intact, Goal Oriented Hallucinations: Denies Suicidal Ideation: Denies Homicidal Ideation: Denies Insight/Judgement: Poor Sleep: Poorly Appetite: Good Muscle strength/Tone: Normal Gait/Station: Normal Psychiatric Findings - Problem List ([place] 1, 2,3) (1) ADHD (attention deficit hyperactivity disorder) Current Visit: No Status: Chronic (2) PTSD (post-traumatic stress disorder) Current Visit: No Status: Chronic (3) Schizoaffective disorder Current Visit: No Status: Chronic (4) Substance induced mood disorder Current Visit: No Status: Acute (5) Substance-induced sleep disorder Current Visit: No Status: Acute (6) Opioid dependence with withdrawal Current Visit: Yes Status: Acute (7) Sedative, hypnotic or anxiolytic dependence, uncomplicated Current Visit: Yes Status: Acute Comment: Prescribed (8) Nicotine dependence Current Visit: Yes Status: Chronic Qualifiers: Nicotine product type: cigarettes Substance use status: uncomplicated Qualified Code(s): F17.210 - Nicotine dependence, cigarettes, uncomplicated (9) Seizure concurrent with and due to anxiolytic withdrawal Current Visit: Yes Status: Resolved (10) Back pain Current Visit: Yes Status: Chronic - Initial Treatment Plan Initial Treatment Plan: 1) Continue Seroquel 200 mg po BID. 2) Continue inpatient detoxification
[2019-01-10] MEDS ORDERED: METHADONE (DETOX) 20 MG, METHADONE (DETOX) 5 MG PO ONE (10:00)
[2019-01-10] MEDS: QUEtiapine FUMARATE 200 MG TABLET PO SCH ×2 (10:28→21:48)
[2019-01-10] MEDS: PRENATAL VITAMINS W/ FOLIC ACID TABLET (FP) PO SCH (10:28)
[2019-01-10] MEDS: NICOTINE 21 MG/24 HOURS TOPICAL PATCH TD SCH (10:29)
[2019-01-10] MEDS: diazePAM 5 MG TABLET PO PRN ×3 (11:37→20:12)
[2019-01-10 12:07] LABS: HEMATOCRIT 40.9 % (35.4-49); HEMOGLOBIN 13.7 GM/dL (11.7-16.9); MCHC 33.5 g/dl (32.0-35.9); MEAN CELL VOLUME 89.6 fl (80-96); MEAN PLT VOLUME 8.8 fl (7.5-11.1); PLATELET COUNT 174 K/MM3 (134-434); RBC 4.57 M/mm3 (4.00-5.60); RDW 13.8 % (11.9-15.9); WHITE BLOOD COUNT 6.1 K/mm3 (4.0-10.0)
[2019-01-10 12:26] LABS: ALBUMIN 3.6 g/dl (3.4-5.0); BILIRUBIN,TOTAL 0.3 mg/dL (0.2-1); BLOOD UREA NITROGEN 18.1 mg/dL (7-18); CALCIUM 8.8 mg/dL (8.5-10.1); CREATININE 0.7 mg/dL (0.55-1.3); TOT PROT 6.2 g/dl (6.4-8.2)
[2019-01-10] MEDS ORDERED: QUEtiapine FUMARATE 400 MG TABLET PO SCH (22:00)
[2019-01-10] MEDS ORDERED: THIAMINE HCL 100 MG TABLET (FP) PO SCH (22:00)
[2019-01-11] MEDS: diazePAM 5 MG TABLET PO PRN ×3 (00:44→13:45)
[2019-01-11] MEDS: QUEtiapine FUMARATE 200 MG TABLET PO SCH ×2 (11:02→11:08)
[2019-01-11] MEDS: PRENATAL VITAMINS W/ FOLIC ACID TABLET (FP) PO SCH ×2 (11:02→11:06)
[2019-01-11] MEDS: METHADONE HCL 10 MG TABLET (FOR DETOX USE ONLY) PO ONE ×2 (11:03→11:06)
[2019-01-11] MEDS: NICOTINE 21 MG/24 HOURS TOPICAL PATCH TD SCH ×2 (11:03→11:05)
[2019-01-11] MEDS ORDERED: TRIMETHOBENZAMIDE HCL 300 MG CAPSULE PO PRN (12:13)
--- NOTE | 2019-01-11 12:14 | PN ---
BHS COWS - Scale Resting Pulse: 0= MA 80 or Below Sweatin= Chills/Flushing Restless Observation: 1= Difficult to Sit Still Pupil Size: 0= Normal to Room Light Bone or Joint Aches: 2= Severe Diffuse Aches Runny Nose/ Eye Tearin= Nasal Congestion GI Upset > 30mins: 2= Nausea/Diarrhea Tremor Observation of Outstretched Hands: 1= Tremor [place], Not Seen Yawning Observation: 0= None Anxiety or Irritability: 1=Feels Anxious/Irritable Goose Flesh Skin: 0=Smooth Skin COWS Score: 9 BHS Progress Note (SOAP) Subjective: sweats agitation irritable interrupted sleep Objective: 01/11/19 12:15 Vital Signs Temperature 98.1 F 01/11/19 09:52 Pulse Rate 75 01/11/19 09:52 Respiratory Rate 19 01/11/19 09:52 Blood Pressure 105/58 L 01/11/19 09:52 O2 Sat by Pulse Oximetry (%) Laboratory Tests 01/10/19 01/10/19 08:20 08:20 WBC 6.1 RBC 4.57 Hgb 13.7 Hct 40.9 MCV 89.6 MCH 30.0 MCHC 33.5 RDW 13.8 Plt Count 174 D MPV 8.8 Sodium 140 Potassium 4.0 Chloride 103 Carbon Dioxide 31 Anion Gap 6 L BUN 18.1 H Creatinine 0.7 Est GFR (CKD-EPI)AfAm 153.09 Est GFR (CKD-EPI)NonAf 132.09 Random Glucose 86 Calcium 8.8 Total Bilirubin 0.3 AST 10 L ALT 14 Alkaline Phosphatase 55 Total Protein 6.2 L Albumin 3.6 labs noted aaox3 ambulating no acute distress Assessment: 01/11/19 12:15 withdrawal sx Plan: continue detox increase fluids
[2019-01-11 13:19] VITALS: BP 121/73; PULSE 104; TEMP 98.4
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
--- NOTE | 2019-01-11 15:09 | DS ---
[facility] Detox Discharge Summary Admission Date: 01/09/19 - History Present History: Cannabis Dependence, Opioid Dependence, Sedative Dependence - Physical Exam Results Vital Signs: Vital Signs Temperature 98.4 F 01/11/19 13:18 Pulse Rate 104 H 01/11/19 13:18 Respiratory Rate 18 01/11/19 13:18 Blood Pressure 121/73 01/11/19 13:18 O2 Sat by Pulse Oximetry (%) Pertinent Admission Physical Exam Findings: pt arrived seeking detox Vital Signs Temperature 98.4 F 01/11/19 13:18 Pulse Rate 104 H 01/11/19 13:18 Respiratory Rate 18 01/11/19 13:18 Blood Pressure 121/73 01/11/19 13:18 O2 Sat by Pulse Oximetry (%) Laboratory Tests 01/10/19 01/10/19 01/10/19 08:20 08:20 08:20 WBC 6.1 RBC 4.57 Hgb 13.7 Hct 40.9 MCV 89.6 MCH 30.0 MCHC 33.5 RDW 13.8 Plt Count 174 D MPV 8.8 Sodium 140 Potassium 4.0 Chloride 103 Carbon Dioxide 31 Anion Gap 6 L BUN 18.1 H Creatinine 0.7 Est GFR (CKD-EPI)AfAm 153.09 Est GFR (CKD-EPI)NonAf 132.09 Random Glucose 86 Calcium 8.8 Total Bilirubin 0.3 AST 10 L ALT 14 Alkaline Phosphatase 55 Total Protein 6.2 L Albumin 3.6 RPR Titer Nonreactive aaox3 ambulating no acute distress - Treatment Patient has Accepted a Rehab Referral to: referral provided - Medication Discharge Medications: Ambulatory Orders Dextroamphetamine/Amphetamine [Adderall Xr 20 mg Capsule] 20 mg PO TID 12/12/18 Quetiapine Fumarate [Seroquel -] 400 mg PO HS 12/12/18 - Diagnosis (1) Opioid dependence with withdrawal Current Visit: Yes Status: Chronic (2) Sedative, hypnotic or anxiolytic dependence, uncomplicated Current Visit: Yes Status: Chronic (3) Back pain Current Visit: Yes Status: Chronic (4) Cannabis abuse, uncomplicated Current Visit: Yes Status: Chronic (5) IVDU (intravenous drug user) Current Visit: Yes Status: Chronic (6) Insomnia, unspecified Current Visit: Yes Status: Chronic Qualifiers: Insomnia type: unspecified Qualified Code(s): G47.00 - Insomnia, unspecified (7) Nicotine dependence Current Visit: Yes Status: Chronic Qualifiers: Nicotine product type: cigarettes Substance use status: uncomplicated Qualified Code(s): F17.210 - Nicotine dependence, cigarettes, uncomplicated (8) Cocaine abuse, uncomplicated Current Visit: No Status: Acute (9) Substance induced mood disorder Current Visit: No Status: Acute (10) Substance-induced sleep disorder Current Visit: No Status: Acute (11) ADHD (attention deficit hyperactivity disorder) Current Visit: No Status: Chronic (12) PTSD (post-traumatic stress disorder) Current Visit: No Status: Chronic (13) Schizoaffective disorder Current Visit: No Status: Chronic - AMA Did Patient Leave Against Medical Advice: No (Involuntary discharge)
[2019-01-12] MEDS ORDERED: METHADONE (DETOX) 10 MG, METHADONE (DETOX) 5 MG PO ONE (10:00)
[2019-01-13] MEDS ORDERED: METHADONE HCL 10 MG TABLET (FOR DETOX USE ONLY) PO ONE (10:00)
[2019-01-14] MEDS ORDERED: METHADONE HCL 5 MG TABLET (FOR DETOX USE ONLY) PO ONE (06:00)
== END 2019-01-11 15:40 | disposition home or self-care (01) | DRG 773 ==
LOC: YASAS 17:21 → Y6N 23:13
PROVIDERS: ADMIT Allergy & Immunology; ATTEND Allergy & Immunology
PROC: HZ2ZZZZ Detoxification Services for Substance Abuse Treatment (ICD-10-PCS; principal; 2019-01-09)
DX: F11.23 Opioid dependence with withdrawal (principal); F13.230 Sedative, hypnotic or anxiolytic dependence with withdrawal, uncomplicated; F14.10 Cocaine abuse, uncomplicated; F12.20 Cannabis dependence, uncomplicated; F17.210 Nicotine dependence, cigarettes, uncomplicated; F19.282 Other psychoactive substance dependence with psychoactive substance-induced sleep disorder; F19.24 Other psychoactive substance dependence with psychoactive substance-induced mood disorder; F25.9 Schizoaffective disorder, unspecified; F31.9 Bipolar disorder, unspecified; F43.10 Post-traumatic stress disorder, unspecified; F90.9 Attention-deficit hyperactivity disorder, unspecified type; G40.509 Epileptic seizures related to external causes, not intractable, without status epilepticus; G47.00 Insomnia, unspecified; M54.9 Dorsalgia, unspecified; Z88.8 Allergy status to other drugs, medicaments and biological substances; F91.8 Other conduct disorders
CPT/HCPCS: 36415; 80053; 85027; 86480; 86593